=== PATIENT | female | born 1995 | race Caucasian/White ===

== ENCOUNTER 2020-12-02 15:30 | Outpatient (REF) | payer OTHER, SELFPAY ==
[2020-12-03 12:06] LABS: BV Int Neg Control Negative (Negative); BV Int Pos Control Positive (Positive)
[2020-12-04 09:02] LABS: C. trachomatis RNA TMA NOT DETECTED (NOT DETECTED); N. gonorrhoeae RNA TMA NOT DETECTED (NOT DETECTED)
== END 2020-12-02 15:31 | disposition home or self-care (01) ==
LOC: HO.LAB 15:30
PROVIDERS: Visit Provider Advanced Practice Midwife
DX: Z12.4 Encounter for screening for malignant neoplasm of cervix (principal); R10.2 Pelvic and perineal pain
CPT/HCPCS: 36415; 87480; 87491; 87510; 87591; 87660; 88141; 88142

== ENCOUNTER 2020-12-10 15:58 | Outpatient (REF) | payer OTHER, SELFPAY ==
--- NOTE | 2020-12-10 16:02 | US_ITS ---
EXAMINATION: ULTRASOUND PELVIS COMPLETE. CLINICAL INFORMATION: Pelvic and perineal pain. COMPARISON: None TECHNIQUE: Transabdominal and transvaginal ultrasound pelvis is performed. FINDINGS: The uterus is anteverted, anteflexed with endometrial thickness of 0.7 cm. No focal lesion seen. The uterus is homogeneous in appearance with an arcuate shape suspected. Mild nabothian cysts seen in the cervix. The right ovary measures 3.3 x 1.8 x 2.4 and volume 7.4 mL. The left ovary measures 2.8 x 1.8 x 2.4 cm and volume 6.5 mL. There is no free fluid in the cul-de-sac. US/US transvaginal IMPRESSION: 1. Unremarkable uterus and ovaries. 2. Small nabothian cysts in the cervix.
--- NOTE | 2020-12-10 16:02 | US_ITS ---
EXAMINATION: ULTRASOUND PELVIS COMPLETE. CLINICAL INFORMATION: Pelvic and perineal pain. COMPARISON: None TECHNIQUE: Transabdominal and transvaginal ultrasound pelvis is performed. FINDINGS: The uterus is anteverted, anteflexed with endometrial thickness of 0.7 cm. No focal lesion seen. The uterus is homogeneous in appearance with an arcuate shape suspected. Mild nabothian cysts seen in the cervix. The right ovary measures 3.3 x 1.8 x 2.4 and volume 7.4 mL. The left ovary measures 2.8 x 1.8 x 2.4 cm and volume 6.5 mL. There is no free fluid in the cul-de-sac. US/US pelvic complete IMPRESSION: 1. Unremarkable uterus and ovaries. 2. Small nabothian cysts in the cervix.
== END 2020-12-10 15:59 | disposition home or self-care (01) ==
LOC: HO.US 15:58
PROVIDERS: Visit Provider Advanced Practice Midwife
DX: R10.2 Pelvic and perineal pain (principal)
CPT/HCPCS: 76830; 76856

== ENCOUNTER → 2020-12-24 10:49 | Outpatient (BNVA) | payer OTHER, SELFPAY | PROVIDERS: Visit Provider Advanced Practice Midwife ==